=== PATIENT | female | born 1955 | race African-American/Black ===

== ENCOUNTER → 2016-11-30 | Outpatient (CLI) | payer OTHER ==
--- NOTE | 2016-11-30 17:14 | KCIC ---
Bilateral digital screening mammograms with CAD: HISTORY Routine screening COMPARISON Comparison is made to previous examinations dated 12/16/2015 and 08/03/2014. FINDINGS Breast density category C. The skin and nipples show no abnormalities. No abnormal lymph nodes are seen in the axilla. The breast parenchyma shows heterogeneous density. There continues to be some subtle nodularity at the 3 o'clock position posteriorly in the left breast which is unchanged. There are no new dominant masses, suspicious calcifications or architectural distortions. IMPRESSION No evidence of malignancy. Recommend routine annual mammographic screening. This study was interpreted with the benefit of Computerized Aided Detection (CAD). Mammography is not 100% sensitive in detecting breast cancer. Therefore, a self breast exam and a clinical breast exam are very important. A negative mammogram does not negate a clinically suspicious finding and should not result in a delay in biopsying a clinically suspicious abnormality. BI-RADS category 2: Benign. This patient's information has been entered into a reminder system for the patient to be notified with the results of this examination and a target date for her next mammograms. Electronically signed by: Vandana Rod MD (Nov 30, 2016 17:12:00)
== END | disposition home or self-care (01) ==
LOC: KCIC MAMMO 16:22
PROVIDERS: ATTEND Family Medicine
DX: Z12.31 Encounter for screening mammogram for malignant neoplasm of breast (principal)
CPT/HCPCS: G0202; 77067

== ENCOUNTER → 2018-01-10 | Outpatient (CLI) | payer OTHER | END | disposition home or self-care (01) | LOC: KCIC MAMMO 15:50 | DX: Z12.31 Encounter for screening mammogram for malignant neoplasm of breast (principal) | CPT/HCPCS: 77063; 77067 ==

== ENCOUNTER → 2019-08-14 | Outpatient (CLI) | payer OTHER ==
--- NOTE | 2019-08-15 12:19 | KCIC ---
BILATERAL SCREENING MAMMOGRAM History: Routine screening. Comparison: Bilateral mammogram January 10, 2018. Technique: Routine bilateral digital mammogram views were obtained. Findings: Breast Tissue Density B : There are scattered areas of fibroglandular density. There are no dominant masses, suspicious microcalcifications, or architectural distortion. IMPRESSION: No mammographic evidence of malignancy. Recommend routine screening. BI-RADS category 1: Negative. The images were reviewed with computer aided detection. Patient information is entered into the reminder system with a target due date for the next screening mammogram. Mammography is the most sensitive method for finding small breast cancers, but it does not detect them all and is not a substitute for careful clinical examination. A negative mammogram does not negate a clinically suspicious finding and should not result in delay in biopsying a clinically suspicious abnormality. "Our facility is accredited by the [employer] Mammography Program." Electronically signed by: Gurwinder Reese MD (08/15/2019 12:17 PM) [id number]
== END | disposition home or self-care (01) ==
LOC: KCIC MAMMO 17:21
PROVIDERS: ATTEND Family Medicine
DX: Z12.31 Encounter for screening mammogram for malignant neoplasm of breast (principal)
CPT/HCPCS: 77067

== ENCOUNTER → 2020-08-15 | Outpatient (CLI) | payer BC, OTHER ==
--- NOTE | 2020-08-15 12:10 | KCIC ---
Bilateral digital screening mammograms with 3-D tomosynthesis: Reason for examination: Routine screening. Comparison is made to previous studies dated back to 12/16/2015. Bilateral mammograms in CC and oblique projections were obtained with 2-D imaging and 3-D tomosynthes is imaging on a Siemens Inspiration unit and reviewed on the workstation. Interpretation was made wit h the benefit of CAD. The skin and nipples show no abnormalities. No abnormal axillary lymph nodes are seen. The breast par enchyma shows scattered fatty and fibroglandular density. (Breast density: Category B.) There continu e to be small nodular parenchymal densities in the 4:00 C position of the right breast and the continuity director ior central 3:00 C position of the left breast which are unchanged. There is however a small circumsc ribed nodule present in the central 7:00 C position of the left breast which is new and measures appr oximately 8 mm in greatest dimension and is located approximately 10 cm deep to the nipple. Further e valuation with ultrasound is recommended. There are no other new masses, suspicious calcifications or architectural distortion. Impression: 8 mm circumscribed nodule in the left breast centrally at approximately the 7:00 C position 10 cm fro m the nipple. Recommend further evaluation with ultrasound. BI-RADS Category 0: Incomplete. Needs additional imaging evaluation. "Our facility is accredited by the [employer] Mammography Program." This patient's information has been entered into a reminder system for the patient to be notified wit h the results of her examination and a target date for the next mammogram. Electronically signed by: Monika Rod MD (08/15/2020 12:08 PM) [id number]
== END ==
LOC: KCIC MAMMO 08:06
PROVIDERS: ATTEND Internal Medicine
DX: Z12.31 Encounter for screening mammogram for malignant neoplasm of breast (principal); N64.89 Other specified disorders of breast
CPT/HCPCS: 77063; 77067

== ENCOUNTER → 2020-08-20 | Outpatient (CLI) | payer BC ==
--- NOTE | 2020-08-20 16:59 | RAD ---
Examination: Limited left breast ultrasound. INDICATION: 65-year-old woman recalled from screening for a new mass in the lower inner posterior lef t breast. COMPARISON: 08/15/2020, 08/04/2019 mammograms. TECHNIQUE AND FINDINGS: Targeted ultrasound of the posterior lower inner quadrant left breast was performed and identified an oval hypoechoic 6 mm mass with microlobulated margins at the 7:00 position 7 cm from the nipple that likely correlates with the mammographic finding recalled from screening. There are low-level interna l echoes present. Although this could represent a potential complicated cyst or intramammary lymph no de, tissue sampling is recommended for definitive diagnosis. IMPRESSION: A 6 mm mass in the lower inner left breast at the 7:00 position 7 cm from the nipple is considered brizuela spicious with a low index of suspicion for malignancy. BI-RADS Category 4 Findings suspicious for malignancy Recommend attempt at cyst aspiration and possible core needle biopsy. Discussed with patient. Discussed with Dr. Nation by telephone at approximately 4:20 PM on 08/20/2020 Patient entered into into a reminder system with targeted due date for next mammogram. Electronically signed by: Waleska Woodward MD (08/20/2020 4:57 PM) [id number]
== END ==
LOC: US 13:26
PROVIDERS: ATTEND Internal Medicine
DX: R92.8 Other abnormal and inconclusive findings on diagnostic imaging of breast (principal); N63.20 Unspecified lump in the left breast, unspecified quadrant
CPT/HCPCS: 76641

== ENCOUNTER → 2020-09-26 | Outpatient (CLI) | payer MEDICARE, BC ==
[~2020-09-26] MED LIST: LIDOCAINE 1% Multi-Dose 20 ML VIAL. INJ ONE
--- NOTE | 2020-09-26 17:31 | RAD ---
ADDENDUM #1 Addendum: Pathology results indicate cystic change, duct ectasia, apocrine metaplasia, focal. No evidence of ma lignancy. This is benign and concordant. Recommend return to routine screening. Electronically signed by: Waleska Woodward MD (10/04/2020 6:22 PM) [id number] ORIGINAL REPORT Examination: 1. Ultrasound-guided left breast core needle biopsy. 2. Left digital postprocedure mammogram. INDICATION: Suspicious 6 mm mass in the left breast recommended for ultrasound-guided core needle bio psy. COMPARISON: Screening mammogram of 08/15/2020, left breast ultrasound of 08/20/2020. TECHNIQUE: Informed consent was obtained and an appropriate procedural pause observed. Using standard sterile technique, ultrasound guidance and local anesthesia, a single 14-gauge core needle biopsy sa mple was obtained of the hypoechoic mass at the left 7 o'clock position 7 cm from nipple measuring 7 mm by ultrasound. The lesion appeared to dissipate following a single pass so additional samples were not obtained. An S-shaped biopsy marker was deployed at the biopsy site and hemostasis ensured with direct breast c ompression for several minutes. Digital left postprocedure mammogram showed satisfactory positioning of the biopsy marker relative to the mass. No post procedure hematoma. Puncture site was dressed and postprocedure instructions reviewed. Patient discharged in stable condi tion to follow her referring physician. There were no apparent complications. IMPRESSION: Successful, uncomplicated left breast ultrasound-guided core needle biopsy with satisfactory clip ankush cement documented on post procedure mammogram. No apparent complications. Pathology results are pendi ng. An addendum will be issued once pathology results become available. Electronically signed by: Waleska Woodward MD (09/26/2020 5:29 PM) [id number]
--- NOTE | 2020-09-30 14:10 | PATHOLOGY ---
[facility] Accession Number: [id number] . 01 Material submitted: . breast - LEFT BREAST MASS AT 7:00. Modifiers: left, 7:00 . 02 Diagnosis: Breast tissue, left breast mass 7:00 needle biopsy: - Cystic change, duct ectasia, and apocrine metaplasia, focal. (JPM:stained glass glazier; 09/30/2020) MBR 09/30/2020 1156 Local . 02 Comment: Sections of the left breast mass at 7:00 needle biopsy primarily reveal fatty breast tissue. However, there is focal cystic change, duct ectasia, and apocrine metaplasia. I am uncertain as to whether the findings are sales account representative of the mass. Correlate with mammographic findings. (JPM:stained glass glazier; 09/30/2020) . 02 Electronically signed: . Jeremi Belle MD, Pathologist NPI- [id number] . 01 Gross description: . The specimen is received in formalin, labeled "Kesha Shelley, left breast". The site is further designated on the requisition as, "left breast mass 7:00 7 cm from nipple". Received is a single needle core of fibrofatty tissue measuring 2.0 cm in length by 0.2 cm in diameter. The specimen is submitted entirely in cassette A1. The cold ischemic time is less than 1 minute. The total formalin fixation time is 33 hours and 30 minutes. ([facility]; 09/27/2020) QAC/QAC 09/27/2020 1136 Local . 02 Pathologist provided ICD-10: N60.42, N60.82 . 02 CPT . [id number] Specimen Comment: A courtesy copy of this report has been sent to [phone] Specimen Comment: Report sent to Performed at: 01 [facility] [address], [place] [id number] MD Natanael Mccormack MD Phone: [phone] Performed at: 02 [facility] [address] [place], [place] [id number] MD Jeremi Belle MD Phone: [phone]
== END | disposition home or self-care (01) ==
LOC: US 10:02
PROVIDERS: ATTEND Internal Medicine
DX: N63.24 Unspecified lump in the left breast, lower inner quadrant (principal); R92.8 Other abnormal and inconclusive findings on diagnostic imaging of breast; Z79.899 Other long term (current) drug therapy
CPT/HCPCS: 19083; 77065; C1713; 88305

== ENCOUNTER → 2022-01-12 | Outpatient (CLI) | payer MEDICARE ==
--- NOTE | 2022-01-12 13:43 | KCIC ---
Bilateral digital screening mammograms with 3-D tomosynthesis: Reason for examination: Routine screening. Comparison is made to previous studies dated back to 12/16/2015. Bilateral mammograms in CC and oblique projections were obtained with 2-D imaging and 3-D tomosynthes is imaging on a Siemens Inspiration unit and reviewed on the workstation. Interpretation was made wit h the benefit of CAD. The skin and nipples show no abnormalities. No abnormal axillary lymph nodes are seen. The breast par enchyma shows scattered fatty and fibroglandular density. (Breast density: Category B.) There continu es to be a nodule containing a biopsy clip posteriorly in the 7:00 position of the left breast. There are no new dominant masses, suspicious calcifications or architectural distortion. Impression: No evidence of malignancy. Recommend routine screening. BI-RAD Category 2: Benign. "Our facility is accredited by the [employer] Mammography Program." This patient's information has been entered into a reminder system for the patient to be notified wit h the results of her examination and a target date for the next mammogram. Electronically signed by: Monika Rod MD (01/12/2022 1:41 PM) [email or web address]
== END ==
LOC: KCIC MAMMO 08:29
PROVIDERS: ATTEND Internal Medicine
DX: Z12.31 Encounter for screening mammogram for malignant neoplasm of breast (principal)
CPT/HCPCS: 77063; 77067